=== PATIENT | female | born 1965 | race Caucasian/White ===

== ENCOUNTER 2020-12-24 02:29 | Outpatient (CLI) | payer MEDICAID, SELFPAY ==
[2020-12-24 09:57] LABS: HCT 46.7 % (36.0-46.0); HGB 15.4 g/dL (11.2-15.7); MCH 28.9 pg (27.0-33.0); MCV 87.6 fL (80-95); MPV 9.6 fL (8.0-11.0); Platelet Count 234 10^3/uL (130-400); RBC 5.33 10^6/uL (3.93-5.22); RDW-SD 41.9 fL; WBC 4.27 10^3/uL (4.4-10.8)
[2020-12-24 11:10] LABS: Anion Gap 9.8 mmol/L (3-11); BUN 17 mg/dL (7-18); CO2 27.2 mmol/L (21.0-32.0); Chloride 106 mmol/L (98-107); Estimated GFR 57.56 (mL/min/1.73m2); Glucose 83 mg/dL (74-106); Potassium 4.4 mmol/L (3.5-5.1); Sodium 143 mmol/L (136-145)
[2020-12-24 11:14] LABS: Calcium 11.8 mg/dL (8.5-10.1)
== END 2020-12-24 02:30 | disposition home or self-care (01) ==
LOC: LBO 02:29
PROVIDERS: Visit Provider Student in an Organized Health Care Education/Training Program
DX: M25.562 Pain in left knee (principal); M17.12 Unilateral primary osteoarthritis, left knee; Z01.818 Encounter for other preprocedural examination; Z01.812 Encounter for preprocedural laboratory examination
CPT/HCPCS: 36415; 80048; 85027

== ENCOUNTER 2020-12-28 03:38 | Outpatient (CLI) | payer MEDICAID, SELFPAY ==
[2020-12-28 12:27] LABS: Source Nasal/Nares
[2020-12-28 17:29] LABS: COVID-19 PCR Negative (Negative)
== END 2020-12-28 03:39 | disposition home or self-care (01) ==
LOC: LBO 03:39
PROVIDERS: Visit Provider Student in an Organized Health Care Education/Training Program
DX: Z20.822 Contact with and (suspected) exposure to COVID-19 (principal); Z01.818 Encounter for other preprocedural examination
CPT/HCPCS: 87635

== ENCOUNTER 2020-12-28 14:10 | Outpatient (CLI) | payer MEDICAID, SELFPAY ==
[2020-12-28 16:19] LABS: Albumin 4.4 g/dL (3.4-5.0)
[2020-12-28 18:30] LABS: Calcium 11.9 mg/dL (8.5-10.1)
[2020-12-30 01:36] LABS: Vitamin D 25 Total 32.4 ng/mL (30-100)
[2020-12-30 10:06] LABS: Parathyroid Hormone,Intact 87 pg/mL (19-88)
[2021-01-04 02:11] LABS: 1,25-Dihydroxyvitamin D 59 pg/mL (18-78)
== END 2020-12-28 14:11 | disposition home or self-care (01) ==
LOC: LBO 14:13
PROVIDERS: Visit Provider Student in an Organized Health Care Education/Training Program
DX: E83.52 Hypercalcemia (principal)
CPT/HCPCS: 36415; 82306; 82040; 82310; 82330; 82652; 83970

== ENCOUNTER 2020-12-29 06:07 | Day surgery (SDC) | payer MEDICAID, SELFPAY ==
[2020-12-29] VITALS (12 sets, daily range): BP systolic 103–118; BP diastolic 69–81; PULSE 50–80; RESP 12–21; TEMP 36.1–36.7; O2SAT 94–99; BMI 24.3
--- NOTE | 2020-12-29 06:09 | W.ANESPRE ---
General Info Date of Service Date Performed: 12/29/20 Height: 5 ft 6 in Weight: 68.492 kg Body Mass Index (BMI): 24.3 Surgical Procedure: Operation Date: 12/29/20 08:00 Proposed Procedures Side Surgeon p Knee Patellofemoral Replacement Left Steven Escobar MD Meds Allergies and Home Medications Allergies Allergy/AdvReac Type Severity Reaction Status Date / Time No Known Allergies Allergy Unverified 12/29/20 06:16 Home Medication Medication Instructions Recorded Unknown [No Known Home Meds] 09/13/20 Current Visit Medications: Current Medications Generic Name Dose Route Start Last Admin Trade Name Freq PRN Reason Stop Dose Admin Acetaminophen 1,000 mg 12/29/20 06:00 Acetaminophen 500 Mg Tab PO 12/29/20 23:59 PREOP CORIN Celecoxib 400 mg 12/29/20 06:00 Celecoxib 200 Mg Cap PO 12/29/20 23:59 PREOP CORIN Gabapentin 300 mg 12/29/20 06:00 Gabapentin 300 Mg Cap PO 12/29/20 23:59 PREOP CORIN Tranexamic Acid 1,000 mg/ 60 mls @ 360 mls/hr 12/29/20 06:00 Sodium Chloride IVPB 12/29/20 23:59 PREOP CORIN Ringer's Solution 1,000 mls @ 80 mls/hr 12/29/20 06:00 IV 01/27/21 23:59 INFUSION CORIN Cefazolin Sodium 2,000 mg/ 100 mls @ 200 mls/hr 12/29/20 06:00 Sodium Chloride IV 12/29/20 23:59 PREOP CORIN IV Miscellaneous Supplies 1 each 12/29/20 06:00 Iv Access IV 01/27/21 23:59 DIRECTED CORIN Sodium Chloride 0 ml 12/29/20 06:00 Normal Saline Flush 10 Ml Syr IV 01/27/21 23:59 PRN PRN Sodium Chloride 0 ml 12/29/20 06:00 Normal Saline 10 Ml Vial IJ 01/27/21 23:59 DIRECTED PRN Sterile Water 0 ml 12/29/20 06:00 Water,Injection,Sterile 10 Ml Vial IJ 01/27/21 23:59 DIRECTED PRN PFSH Active Problems Active Problems: Problem Status Onset Code Hypercalcemia E83.52 Patellofemoral arthritis of left knee M17.12 Tobacco Smoking/Tobacco Use Status: Former Tobacco Use Alcohol Alcohol Intake: never Substance Use Substance use: Never Substance use type: does not use Vital Signs and Lab Results Lab Results Blood Type / Crossmatch: No Data to Display Complete Blood Count: White Blood Count 4.27 10^3/uL (4.4-10.8) L 12/24/20 09:51 12/24/20 Red Blood Count 5.33 10^6/uL (3.93-5.22) H 12/24/20 09:51 12/24/20 Hemoglobin 15.4 g/dL (11.2-15.7) 12/24/20 09:51 12/24/20 Hematocrit 46.7 % (36.0-46.0) H 12/24/20 09:12/24/20 Platelet Count 234 10^3/uL (130-400) 12/24/20 09:51 12/24/20 Complete Metabolic Panel: Sodium Level 143 mmol/L (136-145) 12/24/20 09:12/24/20 Potassium Level 4.4 mmol/L (3.5-5.1) 12/24/20 09:12/24/20 Chloride Level 106 mmol/L (98-107) 12/24/20 09:12/24/20 Carbon Dioxide Level 27.2 mmol/L (21.0-32.0) 12/24/20 09:51 12/24/20 Blood Urea Nitrogen 17 mg/dL (7-18) 12/24/20 09:12/24/20 Creatinine 1.0 mg/dL (0.55-1.02) 12/24/20 09:12/24/20 Estimated GFR/1.73 m2 57.56 (mL/min/1.73m2) 12/24/20 09:51 12/24/20 Calcium Level 11.9 mg/dL (8.5-10.1) H* 12/28/20 11:46 12/28/20 Ionized Calcium 1.40 mmol/L (1.12-1.32) H 12/28/20 11:46 12/28/20 Albumin 4.4 g/dL (3.4-5.0) 12/28/20 11:46 12/28/20 Glucose Level 83 mg/dL (74-106) 12/24/20 09:51 12/24/20 Liver Function Panel: No Data to Display Coagulation Panel: No Data to Display Cardiac Panel: No Data to Display Arterial Blood Gas: No Data to Display Venous Blood Gas: No Data to Display Pancreas Panel: No Data to Display Thyroid Panel: No Data to Display Infectious Disease: Coronavirus (COVID-19)(PCR) Negative (Negative) 12/28/20 10:04 12/28/20 Coronavirus 2019 Source Nasal/Nares 12/28/20 10:04 12/28/20 Blood Cultures: No Data to Display Toxicology Panel: No Data to Display Anesthesia Assessment and Plan Anesthesia History Personal History: No History of Anesthesia Complications Family History: No Family History of Anesthesia Complications Exercise Tolerance Exercise Tolerance: Metabolic Equivalents>4 Cardiac & Pulmonary Exam Cardiac Exam: Normal S1/S2 Heart Sounds Pulmonary Exam: Clear Bilateral Breath Sounds Airway Exam Known Difficult Airway: No Mallampati Class: 1 Mouth Opening: Normal (> 3cm) Thyromental Distance: Greater than 3 cm Neck Range of Motion: Full ROM Neck Circumference: Normal Teeth Condition: Normal Dentition ASA Classification ASA Score: ASA 2 Emergency Case?: No NPO Status NPO Status: NPO Clears >2 hours, Solids >8 hours Anesthesia Plan Resuscitation Status: Full Code Anesthesia Technique: Spinal Anesthesia Airway Planned: Natural Airway Pain Management: Surgeon and patient request nerve block Monitors Used: Standard Monitors Preoperative Comments:: 55 yo female for patellofemoral replacement left knee 2/2 OA. No sig PMHx, did have a slightly elevated calcium on preop labs - she is without symptoms of this. Plan for ACB, and spinal.
[2020-12-29] MEDS: Acetaminophen 500 MG TAB 1000 MG PO (06:28)
[2020-12-29] MEDS: Celecoxib 200 MG CAP 400 MG PO ×2 (06:28→06:29)
[2020-12-29] MEDS: Gabapentin 300 MG CAP PO (06:28)
[2020-12-29] MEDS: Lactated Ringers 1,000 ML 80 ML IV (06:44)
--- NOTE | 2020-12-29 07:44 | PDOC.DSDIS_ITS ---
Documented by User: TANIKA Kong 12/29/20 07:49 Discharge Plan Disposition Patient Disposition: HOME Condition: Good Discharge Details Reason For Visit: Patellofemoral replacement L knee Attending Provider: Steven Escobar Primary Care Provider: Alma Rosa Amezcua Home Meds and New Rx's Prescriptions: New acetaminophen 500 mg capsule 1,000 mg PO Q8H PRN PRNQty: 90 RF: 0 aspirin 81 mg tablet,delayed release (DR/EC) 81 mg PO BID Qty: 60 RF: 0 celecoxib 200 mg capsule 200 mg PO BID Qty: 60 RF: 0 gabapentin 300 mg capsule 300 mg PO QHS Qty: 14 RF: 0 oxycodone 5 mg tablet 5 mg PO Q4H MDD 6 tabs PRN (Reason: pain) Qty: 20 RF: 0 pantoprazole 40 mg tablet,delayed release (DR/EC) 40 mg PO DAILY Qty: 30 RF: 0 Discharge Instructions Additional Instructions: Patellofemoral Replacement Discharge Instructions Activity: The most important activity is to walk. You should try to take short walks a few times a day. It is important that when resting you work on keeping the knee straight. Avoid putting a pillow behind the knee as this will encourage flexion. Work on range of motion exercises as provided by Physical Therapy. - Start outpatient physical therapy within 2 weeks. - You should wear the KVNG hose on both legs for 2 weeks. You may remove these at night. You may also use any compression sock in place of the KVNG hose. Dressing: You may remove the Jigar wrap on your leg 1-2 days after your surgery and put on the KVNG stocking given to you from the hospital. Keep the surgical dressing (underneath the JIGAR wrap) in place for at least one week. After the first week it may be removed and replaced with light gauze and tape or nothing. The wound and dressing may get wet after 3 days but avoid soaking the dressing or otherwise it will need to be changed. Many people prefer covering the dressing with cling wrap (saran wrap) to minimize it from getting soaked. If it gets wet, just pat dry. If it starts to peel off then it will need to be changed. Medications: - You should take Tylenol and anti-inflammatory Celebrex as your primary pain control medications. If the Celebrex is too expensive or not covered, please call the office for another alternative (Advil/Ibuprofen or Naproxen/Aleve) - You have been prescribed a stronger pain medication Oxycodone for breakthrough pain, take as needed as prescribed. - You have also been prescribed a stomach acid reduction agent Pantoprozole to help reduce stomach acid and reflux. - You have been prescribed Gabapentin to take at night for restlessness and nerve pain. - You will be taking Aspirin 81mg twice a day for DVT prevention unless instructed otherwise. - If you have constipation you should take Colace or Miralax (both [id number]). It takes most people 3-4 days to have a bowel movement. Follow-up: 2 weeks If you have any acute concerns or questions, please do not hesitate to contact the office at [phone]. You may contact Dr. Escobar with any questions after hours through the hospital at [phone] or on his cell phone at [phone]. Referrals: Steven Escobar MD [[facility] STAFF PHYSICIAN] - Equipment/Supplies: Walker Activity:: Activity as Tolerated Remove Dressings/Wound Care:: Do Not Remove Shower/Bathe:: 72 hours Diet:: As Tolerated Discharge Orders Discharge Orders: Discharge Order (Routine); Ordered 12/29/20 Ordered By: Steven Escobar DS: Diagnosis Discharge Diagnosis (1) Patellofemoral arthritis of left knee: Status: Acute Documented by User: Steven Escobar MD 12/29/20 10:57 Discharge Plan Disposition Patient Disposition: HOME Condition: Good Discharge Details Reason For Visit: Patellofemoral replacement L knee Attending Provider: Steven Escobar Primary Care Provider: Alma Rosa Amezcua Home Meds and New Rx's Prescriptions: New acetaminophen 500 mg capsule 1,000 mg PO Q8H PRN PRNQty: 90 RF: 0 aspirin 81 mg tablet,delayed release (DR/EC) 81 mg PO BID Qty: 60 RF: 0 celecoxib 200 mg capsule 200 mg PO BID Qty: 60 RF: 0 gabapentin 300 mg capsule 300 mg PO QHS Qty: 14 RF: 0 oxycodone 5 mg tablet 5 mg PO Q4H MDD 6 tabs PRN (Reason: pain) Qty: 20 RF: 0 pantoprazole 40 mg tablet,delayed release (DR/EC) 40 mg PO DAILY Qty: 30 RF: 0 Discharge Instructions Additional Instructions: Patellofemoral Replacement Discharge Instructions Activity: The most important activity is to walk. You should try to take short walks a few times a day. It is important that when resting you work on keeping the knee straight. Avoid putting a pillow behind the knee as this will encourage flexion. Work on range of motion exercises as provided by Physical Therapy. - Start outpatient physical therapy within 2 weeks. - You should wear the KVNG hose on both legs for 2 weeks. You may remove these at night. You may also use any compression sock in place of the KVNG hose. Dressing: You may remove the Jigar wrap on your leg 1-2 days after your surgery and put on the KVNG stocking given to you from the hospital. Keep the surgical dressing (underneath the JIGAR wrap) in place for at least one week. After the first week it may be removed and replaced with light gauze and tape or nothing. The wound and dressing may get wet after 3 days but avoid soaking the dressing or otherwise it will need to be changed. Many people prefer covering the dressing with cling wrap (saran wrap) to minimize it from getting soaked. If it gets wet, just pat dry. If it starts to peel off then it will need to be changed. Medications: - You should take Tylenol and anti-inflammatory Celebrex as your primary pain control medications. If the Celebrex is too expensive or not covered, please call the office for another alternative (Advil/Ibuprofen or Naproxen/Aleve) - You have been prescribed a stronger pain medication Oxycodone for breakthrough pain, take as needed as prescribed. - You have also been prescribed a stomach acid reduction agent Pantoprozole to help reduce stomach acid and reflux. - You have been prescribed Gabapentin to take at night for restlessness and nerve pain. - You will be taking Aspirin 81mg twice a day for DVT prevention unless instructed otherwise. - If you have constipation you should take Colace or Miralax (both [id number]). It takes most people 3-4 days to have a bowel movement. Follow-up: 2 weeks If you have any acute concerns or questions, please do not hesitate to contact the office at [phone]. You may contact Dr. Escobar with any questions after hours through the hospital at [phone] or on his cell phone at [phone]. Referrals: Steven Escobar MD [ [facility] STAFF PHYSICIAN] - Equipment/Supplies: Walker Activity:: Activity as Tolerated Remove Dressings/Wound Care:: Do Not Remove Shower/Bathe:: 72 hours Diet:: As Tolerated Discharge Orders Discharge Orders: Discharge Order (Routine); Ordered 12/29/20 Ordered By: Steven Escobar
[2020-12-29] MEDS: ceFAZolin 2,000 MG in Normal Saline 100 ML 200 MG IV (07:45)
--- NOTE | 2020-12-29 07:55 | W.ANESNERVE ---
Nerve Block Single Injection Procedure Date and Time Date Performed: 12/29/20 Procedure Start: 07:20 Location Where Procedure Performed Procedure Location: PACU Reason Performed: Postoperative Analgesia Requesting Provider: Steven Escobar Timeout Performed Timeout Performed: Yes Monitoring Used ECG, Blood Pressure and SpO2 Sterility Sterility: Hand Hygiene, Surgical Cap, Surgical Mask and Sterile Gloves Sedation Given During Procedure Sedation Given (Indicate Dose Given): Versed IV Dose:: 2 mg Patient Mental Status Patient Mental Status: Sedate with meaningful communication Nerve Block 1st Nerve Block: Laterality: Left Block Type: Adductor Canal Needle / Catheter Used: 100mm SonoPlex II Local Anesthetic Bolus (Indicate Dose Given): Lidocaine used for local infiltration of skin, Injected in 3-5ml increments after negative blood aspiration and Bupivacaine 0.375% Dose:: 10 mL Additives (Indicate Dose Given): None Ultrasound: Sterile probe cover and gel used Ultrasound Image Saved?: Yes Nerve Stimulator: Not Used Paresthesia: None Procedure Tolerated: No Complications Procedure Outcome: Successful Performed By: Ricco Carey
[2020-12-29] MEDS: Ketorolac 30 MG/ML VIAL (08:29)
[2020-12-29] MEDS: Bupivacaine 0.25% Pres-Free 30 ML VIAL (08:29)
--- NOTE | 2020-12-29 10:43 | W.ANESPOSTOP ---
Postoperative Evaluation Date, Time and Location Date Performed: 12/29/20 Time Performed: 10:43 Patient Location: PACU Vital Signs Most Recent Imported Vital Signs: Most Recent Vital Signs Temp Pulse Resp BP Pulse Ox 36.3 C L 50 L 14 115/81 99 12/29/20 10:13 12/29/20 10:13 12/29/20 10:13 12/29/20 10:13 12/29/20 10:13 Assessment Mental Status: Awake (Alert & Oriented to Patient Baseline) Airway and Respiratory Function: Patent airway with normal (patient baseline) respiratory exam Cardiovascular Function: Hemodynamically Stable Hydration Status: Adequately Hydrated Nausea & Vomiting: No Nausea or Vomiting Pain: Pain is tolerable per patient Peripheral Nerve Block: Regional nerve block not resolved at time of post operative discharge
--- NOTE | 2020-12-29 11:59 | IN_ITS ---
Date of service: 12/29/20 Time of Service: 11:59 PT Notes Visit Reasons: Patellofemoral replacement L knee Physical Therapy Day Surgery Initial Evaluation Date: 12/29/20 Referring Doctor: Steven Escobar MD PT Orders: PT CONSULT: S/P ortho surgery. S/P patellofemoral replacement, left. WBAT. Precautions: WBAT on L LE with AD. Patient Profile/Admitting Diagnosis: Patient is a 55-year-old female with patellofemoral arthritis and is S/P patellofemoral replacement on post-operative day 0. PMHX: Unremarkable Social History/Home Situation: Lives alone in a private home with two flights of steps to enter the house but has an alternate route through the basement where she has 1-2 steps to enter. Daughter Michaela will be with her for at least 1-2 weeks to provide support. Rebecca was independent with all aspects of ADLs without an AD. Equipment Owned/DME: None Subjective: Reports numbness in the distal thigh and front of left leg. Complained of frontal headache upin sitting up on edge of chair, subsided with mobility performance. Objective: General Observation: GAVINO wraps to L LE. Cryocuff to L knee. IV in R UE. Mental Status: A and O x 4 Pain: 2/10 in the L knee ROM: Right Lower Extremity: Hip flexion WFL. Hip abduction WFL. Knee flexion WFL. Ankle dorsiflexion WFL. Ankle plantarflexion WFL. Left Lower Extremity: Hip flexion WFL. Hip abduction WFL. Knee flexion 0 to 100 degrees, GAVINO wraps limiting further motion. Knee extension 0 degrees. Ankle dorsiflexion WFL. Ankle plantarflexion WFL. Strength: Right Lower Extremity: Hip flexors 5/5. Hip abductors 5/5. Knee flexors 5/5. Knee extensors 5/5. Ankle dorsiflexors 5/5. Ankle plantarflexors 5/5. Left Lower Extremity:Hip flexors 5/5. Hip abductors 5/5. Knee flexors 3-/5. Knee extensors 4/5. Ankle dorsiflexors 5/5. Ankle plantarflexors 5/5. Sensation: Reports numbness in L LE as above Bed Mobility/Transfers: Supine to sit supervision Sit to stand stand by assist Stand to sit stand by assist Bed to chair stand by assist Gait: Tolerated level surface ambulation of 100 feet using the FWW with step-to gait pattern requiring only stand by assist, wheelchair follow by FLACA Dora. Denies chest pain but reports persistent headache that has subsided. Quad activation on L good. Balance: Static Sitting: Normal Dynamic Sitting: Normal Static Standing: Fair Dynamic Standing: Fair Special Tests: Mobility Limitations Standardized Measure [facility] AM-PAC 6 clicks Basic Mobility Inpatient Short Form: Raw Score: 23 CMS Score: 11% deficit SLR: able to perform x 10 SLRs with no increase in symptoms Informed Consent/Education: Patient instructed in purpose of PT consult. Packet containing PF replacement exercise protocol has been given to patient. Education and training on initial set of exercises that can be done at home have been completed with patient. and daughter Michaela. Assessment: Rebecca requires the use of a FWW for all mobility ADL performance to reduce fall risk and maximize independence at home. Patient presents with clinical signs and symptoms consistent with current/admitting diagnoses that have resulted to mobility limitations, gait instability, generalized weakness, and impairment of motor control as demonstrated by the following impairment level findings: 1. Decreased strength to left knee major muscle groups 2. Impaired standing balance 3. Limitation of joint range of motion in left knee Impairments are contributing to the following functional limitations: 1. Inability to safely ambulate without assistive device 2. Increase completion time for mobility ADL performance 3. Increased fall risk Patient is assessed as a [id number] moderate complexity based on the following: History: -year-old female with impairment level findings, functional limitations, and past medical history as indicated above Examination: Demonstrable impairment in strength, balance, and mobility level with underlying impairments and functional limitations as documented above Presentation: Evolving Decision Makin moderate complexity Goals: N/A. PT evaluation and 1-2 treatment sessions only for functional mobility training using recommended AD and for HEP instruction. Plan of Care/Treatment Plan: N/A. PT evaluation and 1-2 treatment session only for functional mobility training using recommended AD and for HEP instruction. DISCHARGE RECOMMENDATIONS: Home when medically cleared by orthopedic surgeon. OP PT services to facilitate safe return to independent community ambulation without an AD. TREATMENT CODE/TIME: 68564 x 20 minutes, 60348 x 38 minutes beginning at 11:59 AM. Thank you for the opportunity to participate in the care of this patient. Vale Perry PT, DPT, CLT [facility] [place], [place]
--- NOTE | 2020-12-29 21:05 | ROE_ITS ---
Date of service: 12/29/20 Time of Service: 08:52 Operative Note Operative Note DATE OF PROCEDURE: 12/29/20 PRE-OP DIAGNOSIS: Left Patellofemoral Arthritis POST-OP DIAGNOSIS: same PROCEDURE: Left Patellofemoral Replacement SURGEON: Steven Escobar DIESEL MAINTENANCE TECHNICIAN: Dereje Love ANESTHESIA TYPE: Spinal Refer to Anesthesia Record ESTIMATED BLOOD LOSS: 50 PATHOLOGY: none sent TOURNIQUET TIME: 0 COMPLICATIONS: None Patient was transported to: PACU Patient's condition: stable Implants: 1. Arthrosurface Wave Trochlear Component, 7.5x5mm 2. Depuy Attune Patellar Button, 35mm Indications: Rebecca is a 55 year old female who has had symptoms of left patellofemoral arthritis. Conservative measures have been exhausted yet pain and dysfunction persisted. Please see office notes for complete details. Given the continued symptoms, I recommended a patellofemoral replacement. I reviewed the risks of the procedure to include bleeding, infection, pain, stiffness, worsening medial or lateral compartment arthritis, patellar instability, loosening, fracture, clot. Despite these risks, Rebecca elected to proceed. Findings: There was notable arthritic change within the patellofemoral compartment. This was primarily of the central trochlea with complete loss of cartilage and the patella apex with some deformity and chondromalacia. The remainder of the knee did not show any extensive cartilage wear. Procedure Description: Rebecca was greeted in the preoperative holding area where the correct side was identified and marked. The consent was reviewed with the patient and signed. The history and physical was updated. All questions were answered. Preoperative mediacations were administered: Acetaminophen 1000mg, Celebrex 400mg, and Gabapentin 300mg. An adductor canal block was then administered by the anesthesia team in the PACU. She was taken back to the operating room. A spinal anesthestic was then administered. The patient was placed into the supine position on the operating room table. A nonsterile tourniquet was placed high onto the leg but not used. Posts were placed for positioning during the procedure. All bony prominences were well padded. Prophylactic antibiotics in the form of Cefazolin were administered. 1g of Tranxemic Acid was given intravenously within 30 minutes of incision. The left leg was then prepped with Chloraprep and draped in a standard fashion with impervious stockinette and extremity drape. A second prep with Chloraprep was performed prior to placing Ioband. A timeout to confirm correct identity, side and site, procedure, allergies, anesthesia, and medical concerns was performed. With the knee in some flexion, a midline incision was made overlying the knee. Full thickness skin flaps were raised once the extensor mechanism was encountered. These were raised medially and laterally. Any bleeding was controlled with electrocautery. Once the extensor mechanism was fully exposed, a medial parapatellar arthrotomy was performed in a flexed position. All bleeding from the arthrotomy and the geniculate arteries was coagulated. The menisci and intrameniscal ligament was preserved. The knee was held in extension and the patella was measured as 23 mm. Using the patellar clamp and cut guide, this was resected to a flat surface with at least 13mm of thickness remaining. The size 35 patella fit the best. This was oriented and then clamped into position. The lugs were drilled. The Arthrosurface patellofemoral trial was then placed in the appropriate position and a single guidewire was placed through the center of this device. This was confirmed to be in appropriate location using the targeting arm. The trochlea was then sized in both directions corresponding to an 7.5 x 5. The initial reamer was then placed and taken down to appropriate depth. The reaming and drill guide was then placed within this recess and secured with pins. Using both the centralized reamer and the edge reamer, the trochlear recess was prepared. The guide was removed and the edges were curetted for completeness. The central hole was then prepared with a drill and a tap. The outer surface screw was then inserted to the premeasured depth. The 7.5 x 5mm patellofemoral Wave trochlear component by Arthrosurface was then malleted into position sitting flush over the lateral and proximal lateral aspect. High viscosity cement was prepared on the back table under vacuum preparation. When ready, cement was manually impacted into the cut surface of the patella and the patellar button was clamped into position and held. During this process attention was turned to the gutters of the knee and for all interfaces for any excess cement. While the cement was hardening, the knee was irrigated with Irrisept chlorhexadine solution. It was allowed to sit in the knee for 3 minutes. After the cement had finally cured, approximately 15min, the clamp was removed from the patella and the knee was taken through range of motion. The capsule was then reapproximated with a No. 1 Vicryl. The second dosing of 1g TXA was started. Deep tissues were then reapproximated with 0 Vicryl and 2-0 Vicryl. The skin was closed with a running 3-0 Monocryl in a subcuticular fashion. This was reinforced with skin glue. A Mepilex silver dressing was applied along with a [id number] GAVINO wrap. A CryoCuff was applied. Rebecca was transferred to the hospital bed without difficulty an suffering no apparent complication. Rebecca has a good prognosis. Physical therapy will start today and without restrictions, weight-bearing as tolerated. Aspirin 81mg BID will be used for DVT prophylaxis.
--- NOTE | 2020-12-31 11:17 | PDOC.ANES ---
Date of service: 12/31/20 Time of Service: 09:14 Anesthesia Note Report Anesthesia Note: Called Rebecca to chat about some concerns that she had in regards to her recent surgery. She describes that over her lynn (doesn't seem to be more inside vs outside of the lynn, just down the middle, feels numb and not normal. almost like having a wooden leg. She denies any numbness or different feeling on either side of her ankle. She also states that it seems like her knee on the front and inside is a little numb also. She notes that she does not feel like there is any motor issue. She did state that this numbness is improving and has gotten better in the past 24 hrs. We discussed that this may be a nerve injury, and given that it is already getting better that it is unlikely to be permanent injury. We also discussed that this could just be the nerve block and the local still wearing off. I will call her back early next week to see how she is felling and if her numbness is improving.
--- NOTE | 2021-01-03 10:50 | PDOC.ANES ---
Date of service: 01/03/21 Time of Service: 08:53 Anesthesia Note Report Anesthesia Note: Called to follow up with Rebecca about her numbness. She states that the wooden leg feeling has resolved that that she is doing well.
== END 2020-12-29 14:10 | disposition home or self-care (01) ==
PROVIDERS: Visit Provider Student in an Organized Health Care Education/Training Program
PROC: (CPT 27437; principal; 2020-12-29 07:30)
DX: M17.12 Unilateral primary osteoarthritis, left knee (principal)
CPT/HCPCS: 27438; 97162; 97530; J0690; J1100; J1885; J2001; J2250; J2405

== ENCOUNTER 2021-01-13 15:03 | Outpatient (CLI) | payer MEDICAID, SELFPAY ==
--- NOTE | 2021-01-13 09:45 | DI.RAD_ITS ---
Exam(s) XR KNEE LT 3V AP,LAT,DANK EXAM: XR KNEE LT 3V AP,LAT,DANK CLINICAL HISTORY: PF Replacement L knee. TECHNIQUE: 2D digital imaging was performed. COMPARISON: CR KNEE LEFT MIN 4V from 04/26/2020 FINDINGS: There is satisfactory position alignment of the femoral compartment prosthesis. No fracture or loose deon evident. IMPRESSION: DATA REPOSITORY: RADIATION DOSE DELIVERED:
== END 2021-01-13 15:04 | disposition home or self-care (01) ==
LOC: DIORS 15:04
PROVIDERS: Visit Provider Physician Assistant
DX: M17.12 Unilateral primary osteoarthritis, left knee (principal); Z96.652 Presence of left artificial knee joint; Z47.1 Aftercare following joint replacement surgery
CPT/HCPCS: 73562

== ENCOUNTER 2024-10-02 16:20 | Outpatient (REF) | payer MEDICARE, MEDICAID, SELFPAY ==
[2024-10-02 14:37] LABS: Bilirubin Negative (Negative); Blood Small (Negative); Clarity Clear (Clear); Glucose Negative (Negative); Ketones Negative (Negative); Leukocyte Esterase Negative (Negative); Nitrite Negative (Negative); Specific Gravity <= 1.005 (1.005-1.025); Urobilinogen 0.2 mg/dL (Up to 0.2); pH 6.5 (5-8)
[2024-10-02 14:49] LABS: Bacteria Negative HPF (Negative); C & S Indicated? No; Casts Negative LPF (Negative); Crystals Negative HPF (Negative); Epithelial Cells Rare HPF (Negative); Mucus Negative (Negative); RBC 0-2 HPF (0-2); WBC Negative HPF (0-5)
== END 2024-10-02 16:21 | disposition home or self-care (01) ==
LOC: NCHCN 16:20
PROVIDERS: PCP Family Medicine; Visit Provider Family Medicine
DX: R30.0 Dysuria (principal)
CPT/HCPCS: 81003; 81015

== ENCOUNTER 2024-11-10 15:16 | Outpatient (REF) | payer MEDICARE, MEDICAID, SELFPAY ==
[2024-11-10 14:56] LABS: Glucose Negative (Negative)
[2024-11-10 15:09] LABS: WBC Negative HPF (0-5)
[2024-11-10 15:10] LABS: C & S Indicated? No
== END 2024-11-10 15:17 | disposition home or self-care (01) ==
LOC: LBN 15:16
PROVIDERS: PCP Family Medicine; Visit Provider Family Medicine
DX: R31.0 Gross hematuria (principal)
CPT/HCPCS: 81003; 81015

== ENCOUNTER 2024-11-13 01:10 | Outpatient (CLI) | payer MEDICARE, MEDICAID, SELFPAY ==
--- NOTE | 2024-11-13 | DI.CT_ITS ---
Exam(s) CT ABDOMEN PELVIS WO EXAM: CT ABDOMEN PELVIS WO CLINICAL HISTORY: GROSS HEMATURIA,R31.0. TECHNIQUE: Imaging Protocol: Axial computed tomography images with coronal and sagittal reformatted images were created and reviewed. Oral: / no COMPARISON: No exams were available for comparison FINDINGS: Lung Bases: No acute findings. Liver: Normal density. No suspicious mass. Gallbladder and biliary tract: No radiodense calculus or biliary dilation. Pancreas: Normal density. No abnormal calcifications or inflammatory process. Spleen: Normal. Kidneys: Normal size, contour and axis. Two calculi at the lower pole of the right kidney measuring 3 millimeters. Additional right lower pole calculus measuring 4 millimeters. Other tiny bilateral nonobstructing calculi are noted bilaterally. No obstructive uropathy. Cyst noted at lower pole of left kidney. No suspicious masses seen. Adrenal glands: No masses seen. Lymph nodes: Within normal limits. Vasculature: Abdominal aorta non-dilated. Soft tissues: Unremarkable. Bladder: No wall thickening. No mass or calculi. Bowel: No obstruction or bowel wall thickening. The appendix is normal. Normal quantity of stool. Peritoneal cavity: No ascites. No focal collection. No mesenteric inflammatory response. Reproductive organs: Unremarkable. Retroverted uterus. Bones: Unremarkable for age. IMPRESSION: Bilateral nephrolithiasis, greatest at the lower pole of the right kidney. No evidence of ureteral or bladder calculi. RADIATION DOSE DELIVERED: 622.48mGy.cm Total DLP DATA REPOSITORY: All CT scans at this facility are submitted to the National Radiology Data Registry (NRDR) Dose Index Registry (DIR) with the [employer] ([employer]). RADIATION OPTIMIZATION: All CT scans at this facility use at least one of these dose optimization techniques: automated exposure control; mA and/or kV adjustment per patient size (includes targeted exams where dose is matched to clinical indication); or iterative reconstruction.
== END 2024-11-13 01:30 ==
PROVIDERS: PCP Family Medicine; Visit Provider Family Medicine
DX: R31.0 Gross hematuria (principal); N20.0 Calculus of kidney
CPT/HCPCS: 74176

== ENCOUNTER 2024-11-13 10:57 | Outpatient (REF) | payer MEDICARE, MEDICAID, SELFPAY ==
--- NOTE | 2024-11-13 08:10 | PAPNONF_PTH ---
PATIENT: Rebecca Navarro LOC: [facility] U#:[id number] AGE/SX: 59/F ROOM: RE11/13/[address]: Iliana Cordero : 1965 BED: DIS: 11/13/2024 SPEC #: [id number] RECD: 11/13/24 13:16 STATUS: JOSIE RERosette #: [id number] MARTI: 11/13/24 08:[address]: Iliana Cordero DEPT: [facility] Cytology RECD BY: Lisa Callahan Tissues: 1 - BODY FLUID CYTO(SPUTUM/URINE)[facility] Procedures: BODY FLUID CYTO(URINE/SPUTUM) Comments: [id number] (TV = 30 ml, 30 ml CYTOLYT ADDED) (REFRIGERATED)
== END 2024-11-13 10:58 | disposition home or self-care (01) ==
LOC: LBN 10:57
PROVIDERS: PCP Family Medicine; Visit Provider Family Medicine
DX: R87.610 Atypical squamous cells of undetermined significance on cytologic smear of cervix (ASC-US) (principal); R31.0 Gross hematuria
CPT/HCPCS: 88104

== ENCOUNTER 2024-12-01 01:57 | Outpatient (CLI) | payer MEDICARE, MEDICAID, SELFPAY ==
--- NOTE | 2024-12-01 | DI.CT_ITS ---
Exam(s) CT ABDOMEN PELVIS WO/W EXAM: CT ABDOMEN PELVIS WO/W CLINICAL HISTORY: R31.0 Gross hematuria. TECHNIQUE: Imaging Protocol: Axial computed tomography images with coronal and sagittal reformatted images were created and reviewed. Images were performed from the lung bases through the ischial tuberosities before IV contrast and following IV contrast using a 70 second delay, followed by 7 minutes delayed images. CONTRAST MATERIAL: Intravenous: Omnipaque 350 Contrast volume:75 cc Oral: no COMPARISON: CT CT ABDOMEN PELVIS WO from 11/13/2024 FINDINGS: Lung Bases: Normal where visualized. Liver: Normal density. No measurable mass. Gallbladder and biliary tract: No biliary dilation. Pancreas: Normal density, no abnormal calcifications or inflammatory process. Spleen: Normal. Kidneys: Normal size, contour and axis. Tiny bilateral nonobstructing calculi. Calculi again noted at the lower pole of the right kidney measuring 5 millimeters in size. Simple renal cysts are again noted. No follow-up recommended. No suspicious masses seen. Adrenal glands: No masses seen. Lymph nodes: Within normal limits. Abdominal Aorta: Abdominal portion non-dilated. Soft tissues: Unremarkable. Bladder: No gross wall thickening. No evidence of a mass.No evidence of calculi. Bowel: Stomach unremarkable. No obstruction or bowel wall thickening. Appendix normal. Quantity of stool. Peritoneal cavity: No ascites, collection or mesenteric inflammatory response. Bones: Unremarkable for age.. Reproductive organs: Unremarkable for age. IMPRESSION: No suspicious renal mass. Bilateral nonobstructing renal calculi, greatest at the lower pole of the right kidney. No evidence of hydronephrosis. RADIATION DOSE DELIVERED: 1,492.41mGy.cm Total DLP DATA REPOSITORY: All CT scans at this facility are submitted to the National Radiology Data Registry (NRDR) Dose Index Registry (DIR) with the [employer] ([employer]). RADIATION OPTIMIZATION: All CT scans at this facility use at least one of these dose optimization techniques: automated exposure control; mA and/or kV adjustment per patient size (includes targeted exams where dose is matched to clinical indication); or iterative reconstruction.
[2024-12-01] MEDS: Normal Saline - Diluent 50 ML VIAL IJ ×2 (09:51→09:52)
[2024-12-01] MEDS: Omnipaque 350 MG/ML 500 ML BTL-Imaging package 100 ML IJ (09:52)
== END 2024-12-01 02:17 ==
LOC: DI 01:57
PROVIDERS: PCP Family Medicine; Visit Provider Urology
DX: R31.0 Gross hematuria (principal); N20.0 Calculus of kidney
CPT/HCPCS: 74178